=== PATIENT | female | born 1985 | race Caucasian/White ===

== ENCOUNTER 2022-10-02 15:00 | Outpatient (CLI) | payer OTHER, SELFPAY | END 2022-10-02 15:01 | disposition home or self-care (01) | PROVIDERS: PCP Family Medicine; Visit Provider Family Medicine | DX: Z13.6 Encounter for screening for cardiovascular disorders (principal); Z79.899 Other long term (current) drug therapy | CPT/HCPCS: 80053; 80061 ==